=== PATIENT | female | born 1995 | race Caucasian/White ===

== ENCOUNTER 2018-05-10 15:04 | Outpatient (CLI) | payer OTHER ==
[2018-05-10 17:46] LABS: ADD UMIC YES; UR ASCORBIC ACID NEGATIVE (NEGATIVE); UR BILIRUBIN (Dip) NEGATIVE (NEGATIVE); UR BLOOD (Dip) NEGATIVE (NEGATIVE); UR CLARITY CLEAR (CLEAR); UR COLOR STRAW (YELLOW); UR GLUCOSE (Dip) NEGATIVE (NEGATIVE); UR KETONES (Dip) NEGATIVE (NEGATIVE); UR LEUKOCYTE ESTERASE (Dip) TRACE Leu/ul (NEGATIVE); UR NITRITE (Dip) NEGATIVE (NEGATIVE); UR RBC 0 /HPF (0-5); UR SPECIFIC GRAVITY (Dip) 1.002 (1.003-1.030); UR SQUAMOUS EPITHELIAL CELL FEW /HPF (FEW); UR TOTAL PROTEIN (Dip) NEGATIVE (NEGATIVE); UR UROBILINOGEN (Dip) NEGATIVE (NEGATIVE); UR WBC 1 /HPF (0-5)
[2018-05-10 18:39] LABS: ADD MAN DIFF? NO
[2018-05-10 18:43] LABS: BASOPHILS % 0.3 % (0.0-2.0); EOSINOPHILS # 0.1 10^3/ul (0.0-0.5); EOSINOPHILS % 1.8 % (0.0-7.0); HEMATOCRIT 33.2 % (37.0-47.0); HEMOGLOBIN 11.3 g/dl (12.0-16.0); LYMPHOCYTES # 1.4 10^3/ul (0.8-2.9); LYMPHOCYTES % 18.2 % (15.0-51.0); MEAN CORPUSCULAR HEMOGLOBIN 30.1 pg (29.0-33.0); MEAN CORPUSCULAR VOLUME 88.5 fl (82.0-101.0); MEAN PLATELET VOLUME 11.2 fl (7.4-10.4); MONOCYTE # 0.4 10^3/ul (0.3-0.9); MONOCYTES % 4.7 % (0.0-11.0); NEUTROPHIL # 5.9 10^3/ul (1.6-7.5); NEUTROPHILS % 74.6 % (39.0-77.0); PLATELET COUNT 193 10^3/UL (140-415); RED BLOOD COUNT 3.75 10^6/ul (4.20-5.40); RED CELL DISTRIBUTION WIDTH 12.2 % (11.5-14.5)
[2018-05-10 18:43] LABS: WHITE BLOOD COUNT 7.9 10^3/ul (4.8-10.8)
[2018-05-10 19:05] LABS: ALANINE AMINOTRANSFERASE 41 IU/L (13-69); ALBUMIN 3.6 g/dl (3.3-4.9); ALBUMIN/GLOBULIN RATIO 1.16; ALKALINE PHOSPHATASE 69 IU/L (42-121); AMYLASE 92 U/L (11-123); ANION GAP 11 (8-16); ASPARTATE AMINO TRANSFERASE 32 IU/L (15-46); BILIRUBIN,INDIRECT 0.5 mg/dl (0-1.1); BILIRUBIN,TOTAL 0.5 mg/dl (0.2-1.3); BLOOD UREA NITROGEN 4 mg/dl (7-20); CALCIUM 9.1 mg/dl (8.4-10.2); CARBON DIOXIDE 25 mmol/L (21-31); CHLORIDE 105 mmol/L (97-110); CREATININE 0.43 mg/dl (0.44-1.00); GLUCOSE 74 mg/dl (70-220); LIPASE 109 U/L (23-300); POTASSIUM 3.8 mmol/L (3.5-5.1); SODIUM 137 mmol/L (135-144); TOTAL PROTEIN 6.7 g/dl (6.1-8.1)
== END 2018-05-10 18:41 | disposition home or self-care (01) ==
LOC: OBT 15:04 → L-D 15:04 → OBT 18:41
DX: O26.892 Other specified pregnancy related conditions, second trimester (principal); R10.11 Right upper quadrant pain; Z3A.24 24 weeks gestation of pregnancy
CPT/HCPCS: 76705; 80053; 81001; 82150; 83690; 85025; 87086

== ENCOUNTER 2018-08-09 13:21 | Outpatient (CLI) | payer OTHER | END 2018-08-09 15:45 | disposition home or self-care (01) | LOC: OBT 13:21 → L-D 13:21 → OBT 15:45 | DX: O62.9 Abnormality of forces of labor, unspecified (principal); Z3A.37 37 weeks gestation of pregnancy | CPT/HCPCS: 76818 ==

== ENCOUNTER 2018-08-24 03:47 | Inpatient (IN) | payer OTHER ==
[2018-08-24] MEDS ORDERED: BUTORPHANOL 2 MG INJ IV (04:30)
[2018-08-24] MEDS ORDERED: OXYTOCIN 30 UNITS/LR 500 ML IV ×3 (04:30)
[2018-08-24] MEDS ORDERED: FENTAnyl 50 MCG/ML VIAL IV (04:30)
[2018-08-24] MEDS ORDERED: BUTORPHANOL 1 MG INJ IV (04:30)
[2018-08-24] MEDS ORDERED: ACETAMINOPHEN/CODEINE #3 TAB PO (04:30)
[2018-08-24] MEDS ORDERED: METHYLERGONOVINE 0.2 MG INJ IM (04:30)
[2018-08-24] MEDS ORDERED: MISOPROSTOL 200 MCG TAB PR (04:30)
[2018-08-24] MEDS ORDERED: CARBOPROST 250 MCG INJ IM (04:30)
[2018-08-24] MEDS: LACTATED RINGER'S 1,000 ML IV* ×3 (04:55→15:50)
[2018-08-24] MEDS: AMPICILLIN 2 GM/NS (PMX) 100 ML IV (05:01)
[2018-08-24 05:04] LABS: ADD MAN DIFF? NO
[2018-08-24 05:13] LABS: WHITE BLOOD COUNT 9.2 10^3/ul (4.8-10.8)
[2018-08-24 05:13] LABS: BASOPHILS % 0.3 % (0.0-2.0); EOSINOPHILS # 0.1 10^3/ul (0.0-0.5); EOSINOPHILS % 1.3 % (0.0-7.0); HEMOGLOBIN 10.2 g/dl (12.0-16.0); LYMPHOCYTES # 1.8 10^3/ul (0.8-2.9); LYMPHOCYTES % 19.8 % (15.0-51.0); MEAN CORPUSCULAR HEMOGLOBIN 26.7 pg (29.0-33.0); MEAN CORPUSCULAR HGB CONC 32.9 g/dl (32.0-37.0); MEAN CORPUSCULAR VOLUME 81.2 fl (82.0-101.0); MEAN PLATELET VOLUME 12.1 fl (7.4-10.4); MONOCYTE # 0.6 10^3/ul (0.3-0.9); MONOCYTES % 6.8 % (0.0-11.0); NEUTROPHIL # 6.5 10^3/ul (1.6-7.5); NEUTROPHILS % 71.4 % (39.0-77.0); PLATELET COUNT 211 10^3/UL (140-415); RED BLOOD COUNT 3.82 10^6/ul (4.20-5.40); RED CELL DISTRIBUTION WIDTH 12.5 % (11.5-14.5)
[2018-08-24 05:29] LABS: INR 0.82; PROTIME 11.3 Sec (11.9-14.9); PT RATIO 0.9
[2018-08-24 05:30] LABS: PARTIAL THROMBOPLASTIN TIME 28.2 Sec (23.0-35.0)
[2018-08-24 05:31] LABS: ADD UMIC YES; UR ASCORBIC ACID NEGATIVE (NEGATIVE); UR BILIRUBIN (Dip) NEGATIVE (NEGATIVE); UR BLOOD (Dip) NEGATIVE (NEGATIVE); UR CLARITY SLIGHTLY CLOUDY (CLEAR); UR COLOR STRAW (YELLOW); UR GLUCOSE (Dip) NEGATIVE (NEGATIVE); UR KETONES (Dip) NEGATIVE (NEGATIVE); UR LEUKOCYTE ESTERASE (Dip) 1+ Leu/ul (NEGATIVE); UR NITRITE (Dip) NEGATIVE (NEGATIVE); UR RBC 5 /HPF (0-5); UR SPECIFIC GRAVITY (Dip) 1.006 (1.003-1.030); UR SQUAMOUS EPITHELIAL CELL FEW /HPF (FEW); UR TOTAL PROTEIN (Dip) NEGATIVE (NEGATIVE); UR UROBILINOGEN (Dip) NEGATIVE (NEGATIVE); UR WBC 16 /HPF (0-5)
[2018-08-24 06:02] LABS: HEPATITIS B SURFACE ANTIGEN NEGATIVE (NEGATIVE)
[2018-08-24] MEDS ORDERED: FENTAnyl 2MCG/ML-ROPIV 0.2% 100 ML (07:09)
[2018-08-24] MEDS ORDERED: DIPHENHYDRAMINE 50 MG INJ IV (07:30)
[2018-08-24] MEDS ORDERED: NALOXONE (0.4 MG/ML) INJ IV (07:30)
[2018-08-24] MEDS ORDERED: ONDANSETRON 4 MG INJ IV (07:30)
[2018-08-24] MEDS: FENTAnyl 2MCG/ML-ROPIV 0.2% 100 ML BAG EPI ×2 (08:14→15:52)
[2018-08-24] MEDS: AMPICILLIN 1 GM/NS (PMX) 50 ML IV ×4 (09:04→20:17)
[2018-08-24 16:52] LABS: RAPID PLASMA REAGIN NONREACTIVE (NR)
[2018-08-25] MEDS: FENTAnyl 2MCG/ML-ROPIV 0.2% 100 ML BAG EPI ×2 (00:09→06:23)
[2018-08-25] MEDS: LACTATED RINGER'S 1,000 ML IV* ×3 (00:10→21:01)
[2018-08-25] MEDS: AMPICILLIN 1 GM/NS (PMX) 50 ML IV ×2 (00:11→04:39)
[2018-08-25] MEDS: OXYTOCIN 30 UNITS/LR 500 ML IV (02:32)
[2018-08-25] MEDS ORDERED: LIDOCAINE 0.5% (SDV) 50 ML INJ (10:36)
[2018-08-25] MEDS: LIDOCAINE 1% (MPF) 30 ML INJ INJ (11:14)
[2018-08-25] MEDS: MINERAL OIL LIGHT 10 ML VIAL TOP (11:15)
[2018-08-25] MEDS: IBUPROFEN 600 MG TAB PO ×2 (11:45→17:56)
[2018-08-25] MEDS ORDERED: ZOLPIDEM 5 MG TAB PO (13:30)
[2018-08-25] MEDS ORDERED: OXYTOCIN 30 UNITS/LR 500 ML IV (13:30)
[2018-08-25] MEDS ORDERED: MISOPROSTOL 200 MCG TAB PR (13:30)
[2018-08-25] MEDS ORDERED: METHYLERGONOVINE 0.2 MG INJ IM (13:30)
[2018-08-25] MEDS ORDERED: HYDROCODONE/APAP (5/325) TAB PO ×2 (13:30)
[2018-08-25] MEDS ORDERED: CARBOPROST 250 MCG INJ IM (13:30)
[2018-08-25] MEDS: LANOLIN 7 GM TUBE TOP (17:55)
[2018-08-25] MEDS: WITCH HAZEL/GLYCERIN PAD PR (17:55)
[2018-08-25] MEDS: BENZOCAINE 20% 56 ML SPRAY TOP (17:55)
[2018-08-25] MEDS: DIBUCAINE 1% 30 GM OINT PR (17:56)
[2018-08-25] MEDS: CEPHALEXIN 500 MG CAP PO (17:56)
[2018-08-25] MEDS: MAGNESIUM HYDROXIDE 30ML CUP PO (21:00)
[2018-08-25] MEDS: SENNA/DOCUSATE NA (8.6MG/50MG) TAB PO (21:00)
[2018-08-26] MEDS: IBUPROFEN 600 MG TAB PO ×4 (00:52→17:30)
[2018-08-26] MEDS: CEPHALEXIN 500 MG CAP PO ×4 (00:54→17:29)
[2018-08-26] MEDS: LACTATED RINGER'S 1,000 ML IV* ×3 (05:01→21:01)
[2018-08-26 07:22] LABS: ADD MAN DIFF? NO
[2018-08-26 07:23] LABS: WHITE BLOOD COUNT 9.2 10^3/ul (4.8-10.8)
[2018-08-26 07:23] LABS: BASOPHILS % 0.3 % (0.0-2.0); EOSINOPHILS # 0.1 10^3/ul (0.0-0.5); EOSINOPHILS % 1.4 % (0.0-7.0); HEMATOCRIT 26.5 % (37.0-47.0); HEMOGLOBIN 8.7 g/dl (12.0-16.0); LYMPHOCYTES # 1.5 10^3/ul (0.8-2.9); LYMPHOCYTES % 16.8 % (15.0-51.0); MEAN CORPUSCULAR HEMOGLOBIN 26.8 pg (29.0-33.0); MEAN CORPUSCULAR HGB CONC 32.8 g/dl (32.0-37.0); MEAN CORPUSCULAR VOLUME 81.5 fl (82.0-101.0); MONOCYTE # 0.6 10^3/ul (0.3-0.9); MONOCYTES % 6.3 % (0.0-11.0); NEUTROPHIL # 6.9 10^3/ul (1.6-7.5); NEUTROPHILS % 74.7 % (39.0-77.0); PLATELET COUNT 165 10^3/UL (140-415); RED BLOOD COUNT 3.25 10^6/ul (4.20-5.40); RED CELL DISTRIBUTION WIDTH 13.2 % (11.5-14.5)
[2018-08-26] MEDS: MAGNESIUM HYDROXIDE 30ML CUP PO ×2 (09:00→21:26)
[2018-08-26] MEDS: SENNA/DOCUSATE NA (8.6MG/50MG) TAB PO ×2 (09:00→21:26)
[2018-08-26] MEDS: LANOLIN 7 GM TUBE TOP (17:29)
[2018-08-27] MEDS: CEPHALEXIN 500 MG CAP PO ×3 (00:43→12:15)
[2018-08-27] MEDS: IBUPROFEN 600 MG TAB PO ×3 (00:44→12:15)
[2018-08-27] MEDS: LACTATED RINGER'S 1,000 ML IV* ×2 (05:01→13:01)
[2018-08-27] MEDS: VARICELLA VACCINE LIVE/PF 1,350 UNIT/0.5 ML ML SC* (09:00)
[2018-08-27] MEDS: DIPHTH/TET/ACEL PERTUSS (ADULT) 0.5 ML VIAL IM* (09:00)
[2018-08-27] MEDS: MEASLES,MUMPS,RUBELLA VACCINE INJ SC* (09:00)
[2018-08-27] MEDS: MAGNESIUM HYDROXIDE 30ML CUP PO (09:00)
[2018-08-27] MEDS: SENNA/DOCUSATE NA (8.6MG/50MG) TAB PO (09:00)
== END 2018-08-27 16:00 | disposition home or self-care (01) | DRG 807 ==
LOC: OBT 03:47 → PP1 08-25 12:06 → L-D 03:48 → OBT 04:10 → L-D 04:10
PROC: 10E0XZZ Delivery of Products of Conception, External Approach (ICD-10-PCS; principal; 2018-08-25)
PROC: 0UQMXZZ Repair Vulva, External Approach (ICD-10-PCS; 2018-08-25)
DX: O99.824 Streptococcus B carrier state complicating childbirth (principal); Z37.0 Single live birth; O70.0 First degree perineal laceration during delivery; Z3A.39 39 weeks gestation of pregnancy
CPT/HCPCS: 62319; 81001; 85025; 85610; 85730; 86592; 86850; 86900; 86901; 87086; 87340; 90686; 90715; 90716; 99464